=== PATIENT | male | born 1975 | race Caucasian/White ===

== ENCOUNTER 2020-09-30 13:51 | Observation (INO) ==
[2020-09-30] MEDS ORDERED: Aspirin 81 MG TAB.CHEW PO ONE (14:02)
[2020-09-30] MEDS ORDERED: Nitroglycerin 0.4 MG TAB.SUBL SL PRN (14:23)
[2020-09-30 14:32] LABS: Basophils # 0.1 K/mcL (0.0-0.2); Basophils % 0.7 %; Eosinophils # 0.2 K/mcL (0.0-0.6); Hematocrit 44.9 % (37.5-50.1); Hemoglobin 14.8 g/dL (12.9-16.9); Immature Granulocytes % 0.3 % (0-4); Lymphocytes # 2.5 K/mcL (0.6-4.6); Lymphocytes % 25.4 %; Mean Corpuscular Hemoglobin 29.1 pg (28.0-33.3); Mean Corpuscular Volume 88.4 fL (83.0-100.0); Mean Platelet Volume 8.8 fL (9.4-12.4); Monocytes # 0.7 K/mcL (0.0-1.3); Monocytes % 7.6 %; Neutrophils # 6.2 K/mcL (1.6-8.9); Platelet Count 342 K/mcL (140-400); Red Blood Count 5.08 M/mcL (4.19-5.50); Red Cell Distribution Width 12.5 % (11.5-14.5); White Blood Count 9.7 K/mcL (4.3-11.1)
[2020-09-30 14:44] LABS: Prothrombin Time 11.8 Seconds (9.4-12.1)
[2020-09-30 14:46] LABS: Activated Partial Thrombo Time 31.5 Seconds (26.0-36.0)
[2020-09-30] MEDS ORDERED: Morphine Sulfate 2 MG/ML SYRINGE IVP STA (14:51)
[2020-09-30 14:52] LABS: Alanine Aminotransferase 11 Units/L (7-52); Albumin 4.4 g/dL (3.5-5.7); Albumin/Globulin Ratio 1.7 (1.1-2.2); Alkaline Phosphatase 85 Units/L (34-104); Aspartate Amino Transferase 12 Units/L (13-39); BUN/Creatinine Ratio 13 (6-26); Bilirubin,Direct 0.1 mg/dL (0.0-0.2); Bilirubin,Indirect 0.5 mg/dL (0.0-1.0); Bilirubin,Total 0.6 mg/dL (0.3-1.0); Blood Urea Nitrogen 10 mg/dL (6-20); Calcium 9.5 mg/dL (8.6-10.3); Carbon Dioxide 28 mEq/L (23-29); Chloride 106 mEq/L (98-107); Globulin 2.6 g/dL (2.4-3.5); Glucose 94 mg/dL (70-105); Lipase 13 Units/L (11-82); Osmolality,Calculated 285 (280-300); Sodium 138 mEq/L (136-145); Troponin I < 0.03 ng/mL (< 0.04); eGFR For African Americans > 60 (> 60); eGFR For Non-African Americans > 60 (> 60)
[2020-09-30 14:57] LABS: Bilirubin,Urine Negative (Negative); Blood,Urine Negative (Negative); Clarity,Urine Clear (Clear); Color,Urine Colorless (Yellow); Glucose,Urine (UA) Normal (Normal); Ketones,Urine Negative (Negative); Leukocyte Esterase,Urine Negative (Negative); Nitrite,Urine Negative (Negative); Protein,Urine Negative (Neg-Trace); Urobilinogen,Urine Normal (Normal)
[2020-09-30] MEDS ORDERED: Perflutren Lipid Microsphere 1.3 ML in 0.9 % Sodium Chloride 8.7 ML IVP PRN (16:16)
[2020-09-30] MEDS ORDERED: Morphine Sulfate 2 MG/ML SYRINGE IVP PRN (16:16)
[2020-09-30] MEDS ORDERED: Naloxone 0.4 MG/ML INJ IVP PRN (16:49)
[2020-09-30 16:52] LABS: Thyroid Stimulating Hormone 0.939 mcIU/mL (0.340-5.600)
[2020-10-01 03:02] LABS: Chol/HDL Ratio 5.4 (0-4.9)
[2020-10-01] MEDS ORDERED: *HR* Enoxaparin 40 MG/0.4 ML SYRINGE SQ SCH (06:00)
[2020-10-01 08:08] VITALS: BP 102/65
[2020-10-01] MEDS ORDERED: Aspirin 81 MG TAB.CHEW PO SCH (09:00)
[2020-10-01] MEDS ORDERED: Regadenoson 0.4 MG/5 ML SYRINGE IVP ONE (10:32)
== END 2020-10-01 14:50 | disposition home or self-care (01) ==
LOC: 3BNU 13:51 → EMEROOARM 13:51 → SUATTDRO 16:21 → 3BNU 17:26
PROVIDERS: ADMIT Student in an Organized Health Care Education/Training Program; ATTEND Family Medicine